=== PATIENT | female | born 1995 | race Two or more races ===

== ENCOUNTER 2021-07-18 12:15 | Emergency (ER) | payer SELFPAY ==
[~2021-07-18] VITALS: Ht 154.9 cm; Wt 84.9 kg
[2021-07-18] MEDS ORDERED: LIDOCAINE 2%/EPI 1:100,000 20 ML VIAL. INJ ONE (12:45)
[2021-07-18] MEDS ORDERED: DEXAMETHASONE 4 MG TABLET PO ONE (12:45)
[2021-07-18] MEDS ORDERED: HYDROcodone/APAP 5/325MG 1 TAB TABLET PO ONE (12:45)
--- NOTE | 2021-07-18 13:14 | PHYS DOC ---
Past Medical History Past Surgical History: Other Smoking Status: Current Every Day Smoker Alcohol Use: None Adult General Chief Complaint Chief Complaint: SORE THROAT HPI HPI Patient is a 25 year old female presenting to the emergency department for evaluation of multiple complaints including sore throat right wrist pain vaginal discharge and lesion to her buttocks that she thinks is an abscess caused by staph. Patient is 31 weeks and says that she has having no abdominal pain contractions or vaginal bleeding/she says a sore throat has been going on for 1 week and then it hurts to swallow and she feels a swollen lymph node in her right submandibular region. She says it is painful to swallow but she is having no difficulty swallowing. Patient says that the right wrist pain started several days ago after falling on an outstretched wrist and she denies any elbow or hand pain and no weakness numbness or tingling. The vaginal discharge has been going on for several days since she started using Monistat and she says her vaginal discharge is better now and that she does not want to be seen for this rather follow with her lockstitch shoulder joiner. Patient says the lesion on her buttocks has been there for several days and has had no active drainage. She is in no acute distress with normal vital signs. Review of Systems Review of Systems Constitutional: Denies fever or chills [] Eyes: Denies change in visual acuity, redness, or eye pain [] HENT: Denies nasal congestion. + sore throat [] Respiratory: Denies cough or shortness of breath [] Cardiovascular: No additional information not addressed in HPI [] GI: Denies abdominal pain, nausea, vomiting, bloody stools or diarrhea [] : Denies dysuria or hematuria [] Musculoskeletal: Denies back pain. + R wrist pain Integument: Denies rash. + lesion Neurologic: Denies headache, focal weakness or sensory changes [] Endocrine: Denies polyuria or polydipsia [] All other systems were reviewed and found to be within normal limits, except as documented in this note. Current Medications Current Medications Current Medications Medications (Trade) Dose Ordered Sig/Peri Start Time Stop Time Status Last Admin Dose Admin Acetaminophen/ Hydrocodone Bitart (Lortab 5/325) 2 tab 1X ONCE 07/18/21 12:45 07/18/21 12:47 DC 07/18/21 12:56 2 TAB Dexamethasone (Decadron) 8 mg 1X ONCE 07/18/21 12:45 07/18/21 12:47 DC 07/18/21 12:56 8 MG Fluconazole (Diflucan) 150 mg 1X ONCE 07/18/21 13:30 07/18/21 13:35 DC 07/18/21 13:51 150 MG Lidocaine/ Epinephrine (LIDOCAINE 2%-EPI 1:100,000 multi-dose) 20 ml 1X ONCE 07/18/21 12:45 07/18/21 12:47 DC 07/18/21 12:45 20 ML Allergies Allergies Allergies Coded Allergies Type Severity Reaction Last Updated Verified amoxicillin Allergy Intermediate 07/18/21 Yes Physical Exam Physical Exam Constitutional: Well developed, well nourished, no acute distress, non-toxic appearance. [] HENT: Normocephalic, atraumatic, bilateral external ears normal, right tonsil appears enlarged and erythematous but no purulence noted uvula is midline and there is no peritonsillar abscess. Eyes: PERRLA, EOMI, conjunctiva normal, no discharge. [] Neck: Normal range of motion, supple, no stridor. Positive right submandibular lymphadenopathy with tenderness noted. Full range of motion of neck with no stiffness. Cardiovascular:Heart rate regular rhythm, no murmur [] Lungs & Thorax: Bilateral breath sounds clear to auscultation [] Abdomen: Bowel sounds normal, soft, no tenderness, no masses, no pulsatile masses. [] Skin: Right inferior medial buttocks with approximate 2 x 2 centimeter area of hardening but no erythema or warmth noted. Back: No tenderness, no CVA tenderness. [] Extremities: No tenderness, no cyanosis, no clubbing, ROM intact, no edema. [] Neurologic: Alert and oriented X 3, normal motor function, normal sensory function, no focal deficits noted. [] Current Patient Data Vital Signs Vital Signs Date Time Temp Pulse Resp B/P (MAP) Pulse Ox O2 Delivery O2 Flow Rate FiO2 07/18/21 12:56 Room Air 07/18/21 12:29 98.0 113 18 105/61 (76) 99 98.0 EKG EKG [] Radiology/Procedures Radiology/Procedures Indication: Lesion Procedure: The patient was positioned appropriately. Local anesthesia was 2% lidocaine with epi. An incision was then made over the apex of the lesion and bloody drainage was expressed. The drainage cavity was irrigated and the wound was dressed The patient tolerated the procedure well. Complications: none.[] Course & Med Decision Making Course & Med Decision Making I will check strep swab right wrist x-ray performed incision and drainage and reassess. I will treat her sore throat with Decadron which was reviewed and deemed to be safe in her third trimester. Patient says that she was recently on antibiotics before the yeast infection started so I will give her a dose of fluconazole here have her follow-up with her lockstitch shoulder joiner for this. The lesion on her buttocks did not appear consistent with an abscess rather it looks like a lesion such as a granuloma that would benefit from biopsy. I did incise it and there was no purulence and I told her I do not know what this lesion is and that she should see a specialist such as a fitness sales associate or a surgeon or possibly a primary care provider that does biopsies to get further testing and treatment. I told her antibiotics would not help this lesion. X-ray is negative and strep swab is negative as well. Patient will take Tylenol for pain salt water gargles will Thom bandage wrist told her to follow with PCP and PROFESSIONAL APPLICATION DESIGNER regarding her vaginal discharge and buttocks lesion. I told her to come back to emergency department with worsening pain fevers vomiting or other general concerns. Patient aware and agreeable with plan and verbalized understanding of the above instructions. Dragon Disclaimer Dragon Disclaimer This electronic medical record was generated, in whole or in part, using a voice recognition dictation system. Departure Departure Impression: Primary Impression: Skin lesion Additional Impressions: Vulvovaginal candidiasis Right wrist sprain Acute tonsillitis Lymphadenopathy, submandibular Disposition: HOME / SELF CARE / HOMELESS Condition: STABLE Patient Instructions: Tonsillitis Problem Qualifiers HOSSEIN HODGES DO Jul 18, 2021 13:14
--- NOTE | 2021-07-18 13:27 | RAD ---
XR RT WRIST 3VIEWS Clinical indications: Reason: pain s/p fall / Spl. Instructions: / History: Findings: No acute fracture or dislocation or osteolytic process is evident. The scaphoid bone is in tact. IMPRESSION: No acute osseous abnormality is evident. Electronically signed by: Shant Rader MD (07/18/2021 1:25 PM) [id number]
[2021-07-18] MEDS ORDERED: FLUCONAZOLE 100 MG TABLET. PO ONE (13:30)
[2021-07-18 14:55] VITALS: BP 128/79
== END 2021-07-18 15:02 | disposition home or self-care (01) ==
LOC: ER 12:15
DX: L02.31 Cutaneous abscess of buttock (principal); M25.531 Pain in right wrist; J02.9 Acute pharyngitis, unspecified; F17.200 Nicotine dependence, unspecified, uncomplicated; N89.8 Other specified noninflammatory disorders of vagina; B37.3 Candidiasis of vulva and vagina; J03.90 Acute tonsillitis, unspecified; R59.1 Generalized enlarged lymph nodes; Z88.1 Allergy status to other antibiotic agents
CPT/HCPCS: 10060; 73110; 87070; 87880; 99284; J3490

== ENCOUNTER → 2021-08-24 | Outpatient (CLI) | payer OTHER ==
[2021-08-24 13:03] LABS: HEMATOCRIT 32.1 % (36.0-47.0); HEMOGLOBIN 10.8 g/dL (12.0-15.5); RED BLOOD COUNT 3.78 x10^6/uL (3.50-5.40); RED CELL DISTRIBUTION WIDTH 15.3 % (11.5-14.5); WHITE BLOOD COUNT 9.2 x10^3/uL (4.0-11.0)
--- NOTE | 2021-08-24 14:08 | RAD ---
US OB >14 WEEKS History: Reason: related exam in 3rd trimester / Spl. Instructions: / History: Comparison: None. Technique: Multiple grayscale images, color Doppler, and M-mode images of the uterus are obtained. Findings: There is a single intrauterine gestation in cephalic presentation. The placenta is posterior fundal i n location without evidence of placenta previa. The amount of amniotic fluid appears appropriate. Am niotic fluid index is 12 cm. Cervical length is 3.2 cm. Biometrical data: BPD = 8.9 cm for 36 weeks 1 days. HC = 31.73 cm for 35 weeks 5 days. AC = 31.68 cm for 35 weeks 4 days. FL = 7.05 cm for T6 weeks 1 days. HC/AC ratio = 1. Overall, the estimated sonographic gestational age is 35 weeks 6 days for an estimated date of delive ry of September 22, 2021. The estimated date of delivery provided by the last menstrual period is September. Estimated weight is 6 lbs. 2 oz. +/- 14 ounces. A 4 chamber heart is identified with positive cardiac activity. The estimated heart rate is 124 beats per minute. Left ventricular and right ventricular outflow tracts are not well evaluated. Degraded evaluation due to gestational age. Bilateral upper and lower extremities are identified. There is a three-vessel cord with cord insertion visualized. Cord insertion is not well evaluated. stomach and urinary bladder are identified. Both kidneys are seen. The spine, cerebellum and cerebrum are not well characterized. No gross anatomic abnormalities are identified. Impression: 1. Degraded evaluation due to gestational age. 2. Single intrauterine gestation with estimated gestational age 35 weeks 6 days. Electronically signed by: Bernardo Ambrose DO (08/24/2021 2:06 PM) [id number]
[2021-08-25 18:10] LABS: RUBELLA IGG ANTIBODY <0.90 index (Immune >0.99)
== END ==
LOC: US 08:44
PROVIDERS: ATTEND Obstetrics & Gynecology
DX: Z34.93 Encounter for supervision of normal pregnancy, unspecified, third trimester (principal); Z3A.35 35 weeks gestation of pregnancy
CPT/HCPCS: 76805; 82950; 85027; 85660; 86592; 86703; 86762; 86787; 86803; 86850; 86900; 86901; 87340; 87522

== ENCOUNTER 2021-08-31 11:13 | Observation (INO) | payer OTHER ==
--- NOTE | 2021-08-31 11:50 | NUR ---
Patient arrived to floor amb with SO and to room 388. Patient asks about plan and duration of stay. Rn explains the plan of IV medication and approximate duration. Patient appears upset stating " I can not stay that long, I have other appointments. I was told I would receive a injection only". Patient calls Dr. Ambrose's office and gets permission to return in am on 09/01/21, for IV medication administration. RN paged Dr Ambrose to confirm the plan. Patient left floor at 1147 with SO. There was nothing done to this patient, patient received no care or medications. Pharmacy notified of plan for tomorrow.
[2021-08-31] MEDS ORDERED: DEXTROSE 5% IV ONE (12:00)
[2021-08-31] MEDS ORDERED: PENICILLIN K IV ONE (12:00)
[2021-09-01] MEDS ORDERED: DEXTROSE 5% IV ONE ×14 (07:00→11:20)
[2021-09-01] MEDS ORDERED: PENICILLIN K IV ONE ×14 (07:00→11:20)
== END 2021-08-31 11:47 | disposition home or self-care (01) ==
LOC: 3 SO LND 11:13
PROVIDERS: ADMIT Obstetrics & Gynecology; ATTEND Obstetrics & Gynecology
DX: O98.313 Other infections with a predominantly sexual mode of transmission complicating pregnancy, third trimester (principal); A63.8 Other specified predominantly sexually transmitted diseases; B37.3 Candidiasis of vulva and vagina; Z3A.38 38 weeks gestation of pregnancy
CPT/HCPCS: G0378; G0379

== ENCOUNTER 2021-09-01 07:45 | Observation (INO) | payer OTHER ==
[~2021-09-01] VITALS: Ht 154.9 cm; Wt 87.0 kg
[2021-09-01] MEDS ORDERED: DEXTROSE 5% IV ONE ×18 (08:20→13:40)
[2021-09-01] MEDS ORDERED: PENICILLIN K IV ONE ×18 (08:20→13:40)
[2021-09-01] MEDS ORDERED: PENICILLIN G BENZATHINE LA 1,200,000 UNIT/2 ML DISP.SYRIN. IM ONE (16:15)
== END 2021-09-01 16:00 | disposition home or self-care (01) ==
LOC: ER 07:45 → 3 SO LND 08:22
PROVIDERS: ADMIT Obstetrics & Gynecology; ATTEND Obstetrics & Gynecology
DX: O98.113 Syphilis complicating pregnancy, third trimester (principal); A53.9 Syphilis, unspecified; Z3A.38 38 weeks gestation of pregnancy
CPT/HCPCS: 59025; 96365; 96366; 96372; 96376; G0378; G0379; J0561; J2540; J7060

== ENCOUNTER 2021-09-04 14:05 | Observation (INO) | payer OTHER ==
[2021-09-04] MEDS ORDERED: IV RINGERS,LACTATED 1000ML 1,000 ML IV SCH (14:30)
== END 2021-09-04 16:20 | disposition home or self-care (01) ==
LOC: 3 SO LND 14:05
PROVIDERS: ADMIT Obstetrics & Gynecology; ATTEND Obstetrics & Gynecology
DX: O62.9 Abnormality of forces of labor, unspecified (principal); O99.891 Other specified diseases and conditions complicating pregnancy; M54.9 Dorsalgia, unspecified; O36.8130 Decreased fetal movements, third trimester, not applicable or unspecified; O21.2 Late vomiting of pregnancy; O26.893 Other specified pregnancy related conditions, third trimester; R19.7 Diarrhea, unspecified; Z3A.38 38 weeks gestation of pregnancy
CPT/HCPCS: 59025; G0378; G0379

== ENCOUNTER 2021-09-07 12:45 | Observation (INO) | payer OTHER ==
[2021-09-07] MEDS ORDERED: PENICILLIN G BENZATHINE LA 2,400,000 UNIT/4 ML DISP.SYRIN. IM ONE (13:15)
[2021-09-07] MEDS ORDERED: IV RINGERS,LACTATED 1000ML 1,000 ML IV PRN (13:15)
[2021-09-07 13:40] LABS: BACTERIA,URINE MANY /HPF (0-FEW); WBC,URINE TNTC /HPF (0-4)
[2021-09-07 13:41] LABS: RBC,URINE 0 /HPF (0-2)
[2021-09-07 13:44] LABS: HEMOGLOBIN 11.1 g/dL (12.0-15.5); RED BLOOD COUNT 4.05 x10^6/uL (3.50-5.40); RED CELL DISTRIBUTION WIDTH 15.1 % (11.5-14.5); WHITE BLOOD COUNT 8.4 x10^3/uL (4.0-11.0)
[2021-09-07] MEDS ORDERED: PENICILLIN G BENZATHINE LA 1,200,000 UNIT/2 ML DISP.SYRIN. IM ONE ×2 (14:00)
[2021-09-07 14:10] LABS: ALBUMIN 2.3 g/dL (3.4-5.0); ALBUMIN/GLOBULIN RATIO 0.5 (1.0-1.7); CALCIUM 8.8 mg/dL (8.5-10.1); CREATININE 0.5 mg/dL (0.6-1.0); GFR 151.6; TOTAL BILIRUBIN 0.2 mg/dL (0.2-1.0); TOTAL PROTEIN 7.3 g/dL (6.4-8.2)
[2021-09-07 14:59] LABS: CREATININE,RANDOM URINE 102.8 mg/dL (Not Establ.)
== END 2021-09-07 15:03 | disposition home or self-care (01) ==
LOC: 3 SO LND 12:45
PROVIDERS: ADMIT Obstetrics & Gynecology; ATTEND Obstetrics & Gynecology
DX: Z34.93 Encounter for supervision of normal pregnancy, unspecified, third trimester (principal); Z3A.39 39 weeks gestation of pregnancy; Z79.899 Other long term (current) drug therapy
CPT/HCPCS: 36415; 59025; 80053; 81001; 82570; 83615; 84156; 84550; 85027; 87086; 96372; G0378; G0379; J0561

== ENCOUNTER 2021-09-11 11:14 | Inpatient (IN) | payer OTHER ==
[~2021-09-11] VITALS: Ht 154.9 cm; Wt 89.0 kg
[2021-09-11 11:45] VITALS: BP 126/68
[2021-09-11] MEDS ORDERED: OXYTOCIN 30 UNIT/500 ML PREMIX 500 ML IV PRN ×2 (12:15→21:45)
[2021-09-11] MEDS ORDERED: TERBUTALINE 1 MG/ML VIAL. SQ PRN (12:15)
[2021-09-11] MEDS ORDERED: LIDOCAINE 1% PF 30 ML VIAL. INJ PRN (12:15)
[2021-09-11] MEDS ORDERED: BUTORPHANOL 2 MG/ML VIAL. IVP PRN ×2 (12:15)
[2021-09-11] MEDS ORDERED: ACETAMINOPHEN 325 MG TABLET. PO PRN ×2 (12:15→21:45)
[2021-09-11] MEDS ORDERED: 0.9 % SODIUM CHLORIDE 10 ML DISP.SYRIN. IV PRN ×2 (12:15→21:45)
[2021-09-11] MEDS: IV RINGERS,LACTATED 1000ML 1,000 ML IV SCH ×2 (12:54→20:36)
[2021-09-11 13:08] LABS: AMPHETAMINE/METHAMPHETAMINE NEG (NEG); BARBITURATES NEG (NEG); BENZODIAZEPINES NEG (NEG); CANNABINOIDS NEG (NEG); COCAINE NEG (NEG); METHADONE NEG (NEG); OPIATES NEG (NEG); PHENCYCLIDINE NEG (NEG)
[2021-09-11 13:21] LABS: BACTERIA,URINE FEW /HPF (0-FEW)
[2021-09-11] MEDS ORDERED: PENICILLIN G K 5,000,000 UNIT in IV DEXTROSE 5% 100ML 100 ML IV ONE (13:30)
[2021-09-11] MEDS: OXYTOCIN 30 UNIT/500 ML PREMIX 500 ML IV PRN ×2 (13:46→15:48)
[2021-09-11 13:47] LABS: BASO # 0.1 x10^3/uL (0.0-0.2); BASO % 1 % (0-3); EOS # 0.6 x10^3/uL (0.0-0.7); EOS % 4 % (0-3); HEMATOCRIT 35.2 % (36.0-47.0); HEMOGLOBIN 11.1 g/dL (12.0-15.5); LYMPH # 2.1 x10^3/uL (1.0-4.8); LYMPH % 16 % (24-48); MEAN CORPUSCULAR HEMOGLOBIN 27 pg (25-35); MEAN CORPUSCULAR HGB CONC 32 g/dL (31-37); MEAN CORPUSCULAR VOLUME 85 fL (79-100); MONO # 0.8 x10^3/uL (0.0-1.1); MONO % 6 % (0-9); NEUT # 9.3 x10^3/uL (1.8-7.7); NEUT % 72 % (31-73); PLATELET COUNT 524 x10^3/uL (140-400); RED BLOOD COUNT 4.13 x10^6/uL (3.50-5.40); RED CELL DISTRIBUTION WIDTH 15.9 % (11.5-14.5); WHITE BLOOD COUNT 12.9 x10^3/uL (4.0-11.0)
[2021-09-11] MEDS ORDERED: L&D EPIDURAL 50 ML SYRINGE. ONE (14:00)
[2021-09-11] MEDS ORDERED: ROPIVacaine 0.2% PF 10 ML VIAL. ONE ×2 (14:00→15:23)
[2021-09-11 14:02] LABS: ALBUMIN 2.6 g/dL (3.4-5.0); ALBUMIN/GLOBULIN RATIO 0.5 (1.0-1.7); CALCIUM 8.8 mg/dL (8.5-10.1); CREATININE 0.5 mg/dL (0.6-1.0); GFR 151.6; POTASSIUM 4.8 mmol/L (3.5-5.1); TOTAL BILIRUBIN 0.2 mg/dL (0.2-1.0); TOTAL PROTEIN 7.4 g/dL (6.4-8.2); URIC ACID 4.7 mg/dL (2.6-6.0)
--- NOTE | 2021-09-11 15:16 | PDOC1 ---
[employer] H&P Date of Admission: Date of Admission: Sep 11, 2021 at 11:14 History of Present Illness: EDC: 09/12/21 LMP: 12/04/20 25y @ 39.6 by 13wk u/s who presented to L&D for unrelenting GOMEZ. During the pts 2nd injection of Penicillin G benzathine on L&D she was worked up for preeclampsia. Her PIH labs were wnl, but the Pr/Cr was found to be 0.43 ruling her in for preeclampsia. She was expectantly managed to get the 3rd and final do se of Penicillin G benzathine. This am the pt woke up with a GOMEZ that would not resolve with Tylenol. The pt was admitted for indxn for preeclampsia with severe features. Her EDC was set by an u/s that was performed there around 13 wks. Prior they told her EDC would be 09/10/21 based on her LMP. This would made her LMP closer to 12/04/20. [place] she attempted to make an appt at [facility] [place], [place] but the appts kept getting cancelled b/c the provider was out. She recently had a 2nd u/s that was a 4D u/s in [place]. She established at our office at 36.3. She reports having Hep C with a low viral load. She also reports having GHTN and GDM with her 4 other pregnancies. She states that she had 2 PPH. One was due to a retained placenta that had to be removed surgically and the other was delayed (3wks after delivery). With her labs she was found to have syphilis with a titer of 1:32. She had not been txed for syphilis and did not even know she had it. As mentioned above the pt has received penicillin G benzathine 2.4 million Units x 2. PMH: Depression, Hepatitis C, Syphilis PSH: D&C 02/2020 Meds: PNV, Prozac All: amoxicillin: anaphylaxis - Allergy OBHx: 4 x TSVD, 3 x SAB SH: 1/2 PPD, no EtOH FH: DM, HTN Medications: Meds: Current Medications Medications (Trade) Dose Ordered Sig/Peri Route PRN Reason Start Time Stop Time Status Last Admin Dose Admin Ringer's Solution 1,000 ml @ 125 mls/hr Q8H IV 09/11/21 12:15 09/11/21 12:54 Oxytocin 500 ml @ 0 mls/hr CONT PRN IV SEE I/O RECORD 09/11/21 12:15 09/11/21 13:46 Penicillin G Potassium [id number] unit/Dextrose 100 ml @ 100 mls/hr 1X ONCE IV 09/11/21 13:30 09/11/21 14:10 DC 09/11/21 13:45 Cefazolin Sodium/ Dextrose 50 ml @ 100 mls/hr 1X ONCE IV 09/11/21 14:15 09/11/21 14:44 DC 09/11/21 14:15 Allergies: Coded Allergies: amoxicillin (Verified Allergy, Intermediate, 07/18/21) Physical Exam: PE: GENERAL: No apparent distress. Alert and oriented. HEENT: Head normocephalic, atraumatic. NECK: Supple LUNGS: Clear to auscultation. HEART: RRR, S1, S2 present, pulses intact ABDOMEN: Soft, positive bowel sounds. EXTREMITIES: No cyanosis or edema. NEUROLOGIC: Normal speech, normal tone PSYCHIATRIC: Normal affect, normal mood. SKIN: No ulceration. FHT: 120s +acels/no decels/mLTV Picacho: 10 min SVE: 2-3/60/-3 Labs: Laboratory Tests Test 09/11/21 12:10 09/11/21 12:30 Urine Collection Type Unknown Urine Color (Auto) Yellow Urine Turbidity Hazy Urine pH (Auto) 6.5 (<5.0-8.0) Urine Specific [place] 1.018 (1.000-1.030) Urine Protein (Auto) 30 mg/dL (Negative) Urine Glucose (Auto)(UA) Negative mg/dL (Negative) Urine Ketones (Auto) Negative mg/dL (Negative) Urine Blood (Auto) Trace (Negative) Urine Nitrite Negative (Negative) Urine Bilirubin (Auto) Negative (Negative) Urine Urobilinogen (Auto) 2 mg/dL (Normal) Urine Leukocyte Esterase (Auto) Moderate (Negative) Urine RBC 6-10 /HPF (0-2) Urine WBC 11-20 /HPF (0-4) Urine Squamous Epithelial Cells Mod /LPF Urine Bacteria Few /HPF (0-FEW) Urine Mucus Mod /LPF Urine Opiates Screen Neg (NEG) Urine Methadone Screen Neg (NEG) Urine Barbiturates Neg (NEG) Urine Phencyclidine Screen Neg (NEG) Urine Amphetamine/Methamphetamine Neg (NEG) Urine Benzodiazepines Screen Neg (NEG) Urine Cocaine Screen Neg (NEG) Urine Cannabinoids Screen Neg (NEG) Urine Ethyl Alcohol Neg (NEG) White Blood Count 12.9 x10^3/uL (4.0-11.0) H Red Blood Count 4.13 x10^6/uL (3.50-5.40) Hemoglobin 11.1 g/dL (12.0-15.5) L Hematocrit 35.2 % (36.0-47.0) L Mean Corpuscular Volume 85 fL (79-100) Mean Corpuscular Hemoglobin 27 pg (25-35) Mean Corpuscular Hemoglobin Concent 32 g/dL (31-37) Red Cell Distribution Width 15.9 % (11.5-14.5) H Platelet Count 524 x10^3/uL (140-400) H Neutrophils (%) (Auto) 72 % (31-73) Lymphocytes (%) (Auto) 16 % (24-48) L Monocytes (%) (Auto) 6 % (0-9) Eosinophils (%) (Auto) 4 % (0-3) H Basophils (%) (Auto) 1 % (0-3) Neutrophils # (Auto) 9.3 x10^3/uL (1.8-7.7) H Lymphocytes # (Auto) 2.1 x10^3/uL (1.0-4.8) Monocytes # (Auto) 0.8 x10^3/uL (0.0-1.1) Eosinophils # (Auto) 0.6 x10^3/uL (0.0-0.7) Basophils # (Auto) 0.1 x10^3/uL (0.0-0.2) Sodium Level 137 mmol/L (136-145) Potassium Level 4.8 mmol/L (3.5-5.1) Chloride Level 103 mmol/L (98-107) Carbon Dioxide Level 26 mmol/L (21-32) Anion Gap 8 (6-14) Blood Urea Nitrogen 8 mg/dL (7-20) Creatinine 0.5 mg/dL (0.6-1.0) L Estimated GFR (Cockcroft-Gault) 151.6 BUN/Creatinine Ratio 16 (6-20) Glucose Level 90 mg/dL (70-99) Uric Acid 4.7 mg/dL (2.6-6.0) Calcium Level 8.8 mg/dL (8.5-10.1) Total Bilirubin 0.2 mg/dL (0.2-1.0) Aspartate Amino Transferase (AST) 11 U/L (15-37) L Alanine Aminotransferase (ALT) 22 U/L (14-59) Alkaline Phosphatase 185 U/L (46-116) H Lactate Dehydrogenase 156 U/L (81-234) Total Protein 7.4 g/dL (6.4-8.2) Albumin 2.6 g/dL (3.4-5.0) L Albumin/Globulin Ratio 0.5 (1.0-1.7) L Treponema pallidum Antibody Reactive (Nonreactive) Laboratory Tests 09/11/21 12:30 Laboratory Tests 09/11/21 12:30 Laboratory Tests 09/11/21 12:30 Assessment & Plan: A/P 25y @ 39.6 by 13wk u/s 1.) Indxn will start Pit 2.) Preeclampsia with severe features based on BP and proteinuria, now with unrelenting GOMEZ. BPs nml to mild since admission. 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 Discussed case with OPR who recommended to tx like latent. Also advised to making peds aware at time of delivery. Repeat RPR at 6 and 12 months. Expected 4 fold decline. 4.) Hep C - undetectable PCR 5.) H/o GDM GTT wnl 6.) Depression - on Prozac 7.) Amoxicillin All - reports throat swelling 8.) H/o PPH x 2 - one related to retained placenta, the other was delayed 9.) Tob use 10.) Rub NI 11.) Anna NI 12.) Fetus cat I FHT 13.) GBS pos - Clinda resistant, will start Ancef 14.) Girl HANNA MURPHY MD Sep 11, 2021 15:16
[2021-09-11] MEDS ORDERED: L&D EPIDURAL SYRINGE 50 ML EPID PRN (15:30)
[2021-09-11] MEDS ORDERED: NALOXONE 0.4 MG/ML VIAL. IV PRN (15:30)
[2021-09-11] MEDS ORDERED: ONDANSETRON PF 4 MG/2 ML VIAL. IV PRN (15:30)
[2021-09-11] MEDS ORDERED: ePHEDrine PF IN SALINE 50 MG/10 ML SYRINGE. IV PRN (15:30)
[2021-09-11] MEDS ORDERED: IV RINGERS,LACTATED 1000ML 1,000 ML IV ONE (15:30)
[2021-09-11] MEDS ORDERED: fentaNYL PF VIAL 100 MCG/2 ML VIAL EPID ONE (15:30)
[2021-09-11] MEDS ORDERED: PENICILLIN G K 2,500,000 UNIT in IV DEXTROSE 5% 50 ML IV SCH (17:00)
--- NOTE | 2021-09-11 21:44 | PDOC4 ---
VAGINAL DELIVERY DATE DATE: 09/11/21 TIME: 21:44 TIME Patient delivered a viable female over intact perineum at 2132. Wt 6 lb 14 oz. Apgars 8/9. Placenta delivered spontaneously, intact with 3VC. No lacerations noted. Good hemostasis noted. 20 U of Pit given with IVF. EBL 200 cc. WEIGHT Weight [ ] HANNA MURPHY MD Sep 11, 2021 21:44
[2021-09-11] MEDS ORDERED: BENZOCAINE 20% TOPICAL AEROSOL SPRAY 57GM CAN. TP PRN (21:45)
[2021-09-11] MEDS ORDERED: PHENYLEPH/MINERAL OIL/PETROLAT RECTAL OINTMENT TUBE. RC PRN (21:45)
[2021-09-11] MEDS ORDERED: MAG HYDROX/ALUMINUM HYD/SIMETH 30 ML ORAL.SUSP PO PRN (21:45)
[2021-09-11] MEDS ORDERED: MMR per PROTOCOL. MC PRN (21:45)
[2021-09-11] MEDS ORDERED: SIMETHICONE 80 MG TAB.CHEW PO PRN (21:45)
[2021-09-11] MEDS ORDERED: TDaP (BOOSTRIX) per PROTOCOL. MC PRN (21:45)
[2021-09-11] MEDS ORDERED: diphenhydrAMINE HCL 25 MG CAPSULE PO PRN (21:45)
[2021-09-11] MEDS ORDERED: ZOLPIDEM 5 MG TABLET. PO PRN (21:45)
[2021-09-11] MEDS ORDERED: MAGNESIUM HYDROXIDE 2,400 MG/30 ML ORAL.SUSP. PO PRN (21:45)
[2021-09-11] MEDS ORDERED: DOCUSATE SODIUM 100 MG CAPSULE. PO PRN (21:45)
[2021-09-11] MEDS ORDERED: oxyCODONE/APAP 5/325 1 TAB TABLET PO PRN (21:45)
[2021-09-11] MEDS ORDERED: IBUPROFEN 400 MG TABLET. PO PRN (21:45)
[2021-09-11] MEDS ORDERED: HYDROCORTISONE 1% TOPICAL OINTMENT 30GM TUBE. TP PRN (21:45)
[2021-09-11] MEDS ORDERED: ceFAZolin SODIUM IV Push 1 GM VIAL. IVP SCH (22:00)
[2021-09-11 23:42] VITALS: BP 109/55
[2021-09-11 23:57] VITALS: BP 117/59
[2021-09-12 00:12] VITALS: BP 107/57
[2021-09-12 01:15] VITALS: BP 126/64
[2021-09-12] MEDS ORDERED: NICOTINE 14MG PATCH. TD PRN (02:15)
[2021-09-12 04:00] VITALS: BP 114/64
[2021-09-12 07:59] LABS: HEMATOCRIT 31.4 % (36.0-47.0); HEMOGLOBIN 10.3 g/dL (12.0-15.5); RED BLOOD COUNT 3.77 x10^6/uL (3.50-5.40); RED CELL DISTRIBUTION WIDTH 15.4 % (11.5-14.5); WHITE BLOOD COUNT 13.1 x10^3/uL (4.0-11.0)
[2021-09-12 08:00] VITALS: BP 122/78
[2021-09-12] MEDS ORDERED: FERROUS SULFATE 325 MG TABLET. PO SCH (08:00)
[2021-09-12] MEDS ORDERED: PRENATAL MULTIVITAMIN TABLET. PO SCH (09:00)
--- NOTE | 2021-09-12 11:06 | PDOC ---
DECORATION CHECKER PROGRESS NOTE Date of Service: DATE: 09/12/21 TIME: 11:05 Subjective: Pt with good pain control. Dora PO. Voiding. Minimal lochia. Pt desires d/c Objective: Vital Signs: Vital Signs Date Time Temp Pulse Resp B/P (MAP) Pulse Ox O2 Delivery O2 Flow Rate FiO2 09/11/21 11:45 98.0 105 18 126/68 (87) Room Air 98.0 09/11/21 23:42 97 Vital Signs Date Time Temp Pulse Resp B/P (MAP) Pulse Ox O2 Delivery O2 Flow Rate FiO2 09/12/21 08:00 98.3 88 18 122/78 (93) 98.3 09/12/21 04:00 97 Room Air Labs: Laboratory Tests Test 09/11/21 12:10 09/11/21 12:30 09/11/21 15:12 09/12/21 06:55 Urine Collection Type Unknown Urine Color (Auto) Yellow Urine Turbidity Hazy Urine pH (Auto) 6.5 (<5.0-8.0) Urine Specific [place] 1.018 (1.000-1.030) Urine Protein (Auto) 30 mg/dL (Negative) Urine Glucose (Auto)(UA) Negative mg/dL (Negative) Urine Ketones (Auto) Negative mg/dL (Negative) Urine Blood (Auto) Trace (Negative) Urine Nitrite Negative (Negative) Urine Bilirubin (Auto) Negative (Negative) Urine Urobilinogen (Auto) 2 mg/dL (Normal) Urine Leukocyte Esterase (Auto) Moderate (Negative) Urine RBC 6-10 /HPF (0-2) Urine WBC 11-20 /HPF (0-4) Urine Squamous Epithelial Cells Mod /LPF Urine Bacteria Few /HPF (0-FEW) Urine Mucus Mod /LPF Urine Opiates Screen Neg (NEG) Urine Methadone Screen Neg (NEG) Urine Barbiturates Neg (NEG) Urine Phencyclidine Screen Neg (NEG) Urine Amphetamine/Methamphetamine Neg (NEG) Urine Benzodiazepines Screen Neg (NEG) Urine Cocaine Screen Neg (NEG) Urine Cannabinoids Screen Neg (NEG) Urine Ethyl Alcohol Neg (NEG) White Blood Count 12.9 x10^3/uL (4.0-11.0) H 13.1 x10^3/uL (4.0-11.0) H Red Blood Count 4.13 x10^6/uL (3.50-5.40) 3.77 x10^6/uL (3.50-5.40) Hemoglobin 11.1 g/dL (12.0-15.5) L 10.3 g/dL (12.0-15.5) L Hematocrit 35.2 % (36.0-47.0) L 31.4 % (36.0-47.0) L Mean Corpuscular Volume 85 fL (79-100) 83 fL (79-100) Mean Corpuscular Hemoglobin 27 pg (25-35) 27 pg (25-35) Mean Corpuscular Hemoglobin Concent 32 g/dL (31-37) 33 g/dL (31-37) Red Cell Distribution Width 15.9 % (11.5-14.5) H 15.4 % (11.5-14.5) H Platelet Count 524 x10^3/uL (140-400) H 281 x10^3/uL (140-400) Neutrophils (%) (Auto) 72 % (31-73) Lymphocytes (%) (Auto) 16 % (24-48) L Monocytes (%) (Auto) 6 % (0-9) Eosinophils (%) (Auto) 4 % (0-3) H Basophils (%) (Auto) 1 % (0-3) Neutrophils # (Auto) 9.3 x10^3/uL (1.8-7.7) H Lymphocytes # (Auto) 2.1 x10^3/uL (1.0-4.8) Monocytes # (Auto) 0.8 x10^3/uL (0.0-1.1) Eosinophils # (Auto) 0.6 x10^3/uL (0.0-0.7) Basophils # (Auto) 0.1 x10^3/uL (0.0-0.2) Sodium Level 137 mmol/L (136-145) Potassium Level 4.8 mmol/L (3.5-5.1) Chloride Level 103 mmol/L (98-107) Carbon Dioxide Level 26 mmol/L (21-32) Anion Gap 8 (6-14) Blood Urea Nitrogen 8 mg/dL (7-20) Creatinine 0.5 mg/dL (0.6-1.0) L Estimated GFR (Cockcroft-Gault) 151.6 BUN/Creatinine Ratio 16 (6-20) Glucose Level 90 mg/dL (70-99) Uric Acid 4.7 mg/dL (2.6-6.0) Calcium Level 8.8 mg/dL (8.5-10.1) Total Bilirubin 0.2 mg/dL (0.2-1.0) Aspartate Amino Transferase (AST) 11 U/L (15-37) L Alanine Aminotransferase (ALT) 22 U/L (14-59) Alkaline Phosphatase 185 U/L (46-116) H Lactate Dehydrogenase 156 U/L (81-234) Total Protein 7.4 g/dL (6.4-8.2) Albumin 2.6 g/dL (3.4-5.0) L Albumin/Globulin Ratio 0.5 (1.0-1.7) L Treponema pallidum Antibody Reactive (Nonreactive) SARS-CoV-2 Antigen (Rapid) Negative (NEGATIVE) Laboratory Tests 09/11/21 12:30 09/12/21 06:55 Laboratory Tests 09/11/21 12:30 Laboratory Tests 09/11/21 12:30 09/12/21 06:55 Physical Exam: GENERAL: No apparent distress. Alert and oriented. HEENT: Head normocephalic, atraumatic. NECK: Supple LUNGS: Clear to auscultation. HEART: RRR, S1, S2 present, pulses intact ABDOMEN: Soft, positive bowel sounds. EXTREMITIES: No cyanosis or edema. NEUROLOGIC: Normal speech, normal tone PSYCHIATRIC: Normal affect, normal mood. SKIN: No ulceration. FFNT below umb No C/C/E Assessment & Plan: A/P 25y PPD #1 s/p 1.) PP doing well 2.) Preeclampsia with severe features based on BP and proteinuria. Throughout labor course the pt had nml to mild BPs (mostly nml). No longer with GOMEZ. 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 Final dose due Tuesday. Repeat RPR at 6 and 12 months. Expected 4 fold decline. 4.) Hep C - undetectable PCR 5.) Depression - on Prozac 6.) Amoxicillin All - reports throat swelling 7.) H/o PPH x 2 - one related to retained placenta, the other was delayed 8.) Tob use 9.) Rub NI 10.) Anna NI 11.) Hgb 11.1 -> 10.3 12.) Girl HANNA MURPHY MD Sep 12, 2021 11:06
[2021-09-12] MEDS ORDERED: IBUP-1060 PO (11:11)
[2021-09-12] MEDS ORDERED: DOCU-109 PO (11:11)
[2021-09-12 11:14] VITALS: BP 116/68
[2021-09-12] MEDS ORDERED: MEASLES, MUMPS & RUBELLA VACC 0.5 ML VIAL. VAX SQ ONE (11:30)
[2021-09-12 12:15] VITALS: BP 118/68
--- NOTE | 2021-09-12 12:35 | NUR ---
dismissal instructions given and signed. Pt left per w/c accompanied by fob and this RN. VSS
--- NOTE | 2021-09-13 14:46 | DS ---
DATE OF DISCHARGE: 09/12/2021 ADMISSION DIAGNOSES: 1. Intrauterine at 39 weeks and 6 days by a 13-week ultrasound. 2. Induction of labor. 3. Preeclampsia with severe features. 4. Syphilis. 5. Hepatitis C. 6. History of gestational diabetes with normal GTT. 7. Depression, on Prozac. 8. AMOXICILLIN ALLERGY. 9. History of hemorrhage x 2. 10. Tobacco use. 11. Rubella nonimmune. 12. Varicella nonimmune. 13. GBS positive. DISCHARGE DIAGNOSES: 1. Intrauterine at 39 weeks and 6 days by a 13-week ultrasound. 2. Induction of labor. 3. Preeclampsia with severe features. 4. Syphilis. 5. Hepatitis C. 6. History of gestational diabetes with normal GTT. 7. Depression, on Prozac. 8. AMOXICILLIN ALLERGY. 9. History of hemorrhage x 2. 10. Tobacco use. 11. Rubella nonimmune. 12. Varicella nonimmune. 13. GBS positive. PROCEDURE: Spontaneous vaginal delivery. BRIEF HOSPITAL COURSE: The patient is a 25-year-old 8, para 4-0-3-4, who presented to Labor and Delivery at 39 weeks and 6 days by a 13-week ultrasound with unrelenting headache. The patient initially said that her EDC had been set by an ultrasound around 13 weeks, making her due date of 09/12/2021. Based on her LMP, the patient would have EDC of 09/10/2001, this was determined in [place]. The patient reported that she had care, but it was unclear if she had care, was seen in urgent cares in the ER because her records were never able to be obtained. Once the patient arrived in [place] she attempted to make an appointments with [facility] but the appointments were continually canceled due to the provider being out. The patient ultimately had a second trimester ultrasound in [place]. When she established in the [place] office, the patient was found to be 36 weeks and 3 days. The patient reported having hepatitis C with undetectable viral load and the patient was encouraged to get labs, which took a few visits before and she ultimately got them. When the patient did undergo her labs, she was found to have syphilis with a titer of 1:32 and the patient had not been treated for syphilis in the past and was unaware that she even had it. The patient was started on a course of penicillin G. The patient ultimately only got 2 doses with her next dose scheduled to be for the following Tuesday after her induction. Since the patient had a PENICILLIN ALLERGY she was desensitized with the first dose, but due to her questionable PENICILLIN ALLERGY she was given the usual dose without desensitization on the second one, which she tolerated well. The patient during her second dose was noted to have mild range blood pressures. PIH labs were sent and ultimately returned normal with the exception of a protein creatinine ratio that was found to be 0.43, which ruled her in for preeclampsia. Due to attempting to get third and final dose the patient was expectantly managed. When the patient called the morning of her induction with unrelenting headache, a decision was made to move towards induction due to her meeting the diagnosis for preeclampsia with severe features. On Labor and Delivery, the patient's blood pressures were mostly normal with a few milds. Her PIH labs ultimately returned negative. The patient was started on Pitocin and ultimately delivered by vaginal delivery. See delivery note for full detail. By the morning following the delivery, the patient desired discharge home to be with her other children. This patient subsequently delivered. Of note, the patient's hemoglobin on admission was found to be 11.1 and after delivery, was found to be 10.3. DISCHARGE INSTRUCTIONS: The patient was told not to lift anything greater than 20 pounds, have pelvic rest for 6 [address], [address] to drive while on narcotics. CALL IF: The patient was to call if she had fevers, chills, nausea, vomiting, abdominal pain or any additional questions or concerns. FOLLOWUP APPOINTMENT: The patient was to follow up in the office on 09/13/2021 for her final dose of penicillin G benzathine. DISCHARGE MEDICATIONS: The patient was given a prescription for Motrin 800 mg, 30 pills and Colace 100 mg, 30 pills. PASCUAL/LUIS ALBERTO DR: Steven TID: [id number] [facility]
[2021-09-14] MEDS ORDERED: NICO1PAT25 TP (16:15)
== END 2021-09-12 12:42 | disposition home or self-care (01) | DRG 806 ==
LOC: 3 SO LND 11:14 → OBSVTOIN 12:22 → 3 SO LND 23:45
PROVIDERS: ADMIT Obstetrics & Gynecology; ATTEND Obstetrics & Gynecology
PROC: 10E0XZZ Delivery of Products of Conception, External Approach (ICD-10-PCS; principal; 2021-09-11)
PROC: 3E033VJ Introduction of Other Hormone into Peripheral Vein, Percutaneous Approach (ICD-10-PCS; 2021-09-11)
PROC: 3E0234Z Introduction of Serum, Toxoid and Vaccine into Muscle, Percutaneous Approach (ICD-10-PCS; 2021-09-11)
DX: O98.12 Syphilis complicating childbirth (principal); O98.42 Viral hepatitis complicating childbirth; Z37.0 Single live birth; O98.52 Other viral diseases complicating childbirth; O99.824 Streptococcus B carrier state complicating childbirth; O14.14 Severe pre-eclampsia complicating childbirth; O99.344 Other mental disorders complicating childbirth; F32.A Depression, unspecified; O99.334 Smoking (tobacco) complicating childbirth; F17.210 Nicotine dependence, cigarettes, uncomplicated; B06.9 Rubella without complication; B19.20 Unspecified viral hepatitis C without hepatic coma; Z3A.39 39 weeks gestation of pregnancy; Z79.899 Other long term (current) drug therapy; Z83.3 Family history of diabetes mellitus; Z88.0 Allergy status to penicillin; Z88.1 Allergy status to other antibiotic agents; Z88.8 Allergy status to other drugs, medicaments and biological substances; Z20.822 Contact with and (suspected) exposure to COVID-19; Z23 Encounter for immunization
CPT/HCPCS: 36415; 80053; 80307; 81001; 83615; 84550; 85025; 85027; 86592; 86850; 86900; 86901; 87086; 87426; 88307; 90471; 90707; A6258; C1755; G0378; G0379; J0690; J2540; J2590; J2795; J3010; J7060; J7120; U0003